=== PATIENT | male | born 1965 | race Caucasian/White ===

== ENCOUNTER 2016-10-16 07:39 | Emergency (ER) | payer OTHER ==
[~2016-10-16] VITALS: Ht 170.2 cm; Wt 112.1 kg
[2016-10-16] MEDS ORDERED: NORCO 5/3251 TABLET PO (09:07)
[2016-10-16 09:15] VITALS: BP 150/92
== END 2016-10-16 09:17 | disposition home or self-care (01) ==
LOC: EME 07:39
DX: S63.501A Unspecified sprain of right wrist, initial encounter (principal); X58.XXXA Exposure to other specified factors, initial encounter
CPT/HCPCS: 73110; 99281; 99283